=== PATIENT | male | born 1990 | race Caucasian/White ===

== ENCOUNTER 2017-07-07 22:10 | Emergency (ER) | payer OTHER ==
[~2017-07-07] VITALS: Ht 182.9 cm; Wt 150.6 kg
[2017-07-07 22:24] VITALS: Ht 182.9 cm; Wt 150.6 kg
[2017-07-08 01:07] VITALS: BP 161/92
== END 2017-07-08 01:07 | disposition home or self-care (01) ==
LOC: ED 22:10
DX: S61.022A Laceration with foreign body of left thumb without damage to nail, initial encounter (principal); W25.XXXA Contact with sharp glass, initial encounter; Y93.89 Activity, other specified; Y92.89 Other specified places as the place of occurrence of the external cause; Y99.8 Other external cause status
CPT/HCPCS: J2001